=== PATIENT | male | born 1995 | race Caucasian/White ===

== ENCOUNTER 2020-04-05 14:37 | Emergency (ER) | payer OTHER, SELFPAY ==
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
[2020-04-05 14:46] VITALS: BP 138/75; PULSE 94; RESP 18; TEMP 36.3; O2SAT 100
[2020-04-05] MEDS: SODIUM CHLORIDE 0.9% IV 1,000 ML 999 ML IV CONT (14:56)
== END 2020-04-05 15:24 | disposition short-term general hospital (02) ==
LOC: ANHED 15:02
PROVIDERS: Emergency Provider Emergency Medicine
DX: S09.90XA Unspecified injury of head, initial encounter (principal); S20.212A Contusion of left front wall of thorax, initial encounter; F10.129 Alcohol abuse with intoxication, unspecified; V48.0XXA Car driver injured in noncollision transport accident in nontraffic accident, initial encounter
CPT/HCPCS: 71045; 72170; 96365; 99285; J0131; J7030

== ENCOUNTER 2020-07-28 12:34 | Emergency (ER) | payer OTHER, SELFPAY ==
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
[2020-07-28 12:56] VITALS: BP 109/57; PULSE 79; RESP 18; TEMP 36.6; O2SAT 100
--- NOTE | 2020-07-28 13:08 | PC.NURSE ---
Sling placed in triage on arrival, pt taken to XRAY via WC.
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
[2020-07-28] MEDS: MORPHINE SULFATE (*CRX) 4 MG/ML INJ IV PUSH ×3 (13:46→17:15)
[2020-07-28 14:19] VITALS: BP 130/88; PULSE 76; RESP 17; O2SAT 100
[2020-07-28] MEDS: ONDANSETRON INJ 4 MG/2 ML VIAL (16:02)
[2020-07-28 16:15] VITALS: BP 116/63; PULSE 84; RESP 21; O2SAT 97
[2020-07-28 17:14] VITALS: BP 128/67; PULSE 74; RESP 17; O2SAT 100
[2020-07-28 18:19] VITALS: BP 116/78; PULSE 89; RESP 19; O2SAT 99
== END 2020-07-28 18:20 | disposition short-term general hospital (02) ==
PROVIDERS: Emergency Provider Emergency Medicine
DX: S42.022A Displaced fracture of shaft of left clavicle, initial encounter for closed fracture (principal); V18.4XXA Pedal cycle driver injured in noncollision transport accident in traffic accident, initial encounter
CPT/HCPCS: 73030; 96374; 96375; 96376; 99285; A4565; J2270; J2405